=== PATIENT | male | born 1945 | race Caucasian/White ===

== ENCOUNTER → 2016-06-11 | Outpatient (CLI) | payer MEDICARE ==
[~2016-06-11] MED LIST: ATOR20TA42 PO; CYCL-36 PO; FISH1000 PO; GLUCCAP5 PO; LISI-363 PO; LISI-515 PO; MULT-135 PO; PRIN20TA2 PO; VITA100C2 PO; VITA400T2 PO; VITA500T PO
[2016-06-11 07:22] LABS: AUTOMATED NEUTROPHIL # 2.8 TH/MM3 (1.8-7.7); BASOPHIL % 0.6 % (0.0-2.0); EOSINOPHIL # 0.2 TH/MM3 (0-0.4); HEMATOCRIT 44.1 % (39.0-51.0); HEMO FLAGS DIFF FINAL; LYMPHOCYTE # 1.2 TH/MM3 (1.0-4.8); MEAN CELL VOLUME 95.7 FL (80.0-100.0); MEAN CORPUSCULAR HEMOGLOBIN 33.6 PG (27.0-34.0); MEAN CORPUSCULAR HGB CONC 35.1 % (32.0-36.0); MONO % 14.3 % (0.0-8.0); NEUT % 56.1 % (16.0-70.0); PLATELET COUNT 196 TH/MM3 (150-450); RED BLOOD COUNT 4.61 MIL/MM3 (4.50-5.90)
[2016-06-11 07:47] LABS: ALKALINE PHOSPHATASE 71 U/L (45-117); ALT (GPT) 36 U/L (12-78); ANION GAP 8 MEQ/L (5-15); AST (GOT) 28 U/L (15-37); BICARBONATE 28.3 MEQ/L (21.0-32.0); BLOOD UREA NITROGEN 10 MG/DL (7-18); CHLORIDE 95 MEQ/L (98-107); GLOMERULAR FILTRATION RATE 91 ML/MIN (>89); GLUCOSE,FASTING 95 MG/DL (74-99); HDL CHOLESTEROL 63.6 MG/DL (40.0-60.0); LDL CHOLESTEROL 136 MG/DL (0-99); POTASSIUM 4.2 MEQ/L (3.5-5.1); SODIUM (NA) 131 MEQ/L (136-145); TOTAL BILIRUBIN ADULT 0.6 MG/DL (0.2-1.0)
== END ==
LOC: CLAB 06:44
PROVIDERS: ATTEND Family Medicine
DX: I10 Essential (primary) hypertension (principal); E78.2 Mixed hyperlipidemia; M15.0 Primary generalized (osteo)arthritis; Z85.46 Personal history of malignant neoplasm of prostate; Z68.30 Body mass index [BMI] 30.0-30.9, adult
CPT/HCPCS: 36415; 80053; 80061; 85025

== ENCOUNTER 2016-08-04 10:18 | Emergency (ER) | payer OTHER, MEDICARE ==
[~2016-08-04] VITALS: Ht 170.2 cm; Wt 85.0 kg
[~2016-08-04 10:18] MED LIST changes: -FISH1000 PO; -GLUCCAP5 PO; -LISI-515 PO; -MULT-135 PO; -VITA100C2 PO; -VITA400T2 PO; -VITA500T PO
[2016-08-04 10:19] VITALS: BP 170/86; PULSE 105; RESP 15; TEMP 98.2; O2SAT 98
[2016-08-04] MEDS ORDERED: VITA100C2 PO (11:26)
[2016-08-04] MEDS ORDERED: LISI-515 PO (11:26)
[2016-08-04] MEDS ORDERED: VITA400T2 PO (11:26)
[2016-08-04] MEDS ORDERED: MULT-135 PO (11:26)
[2016-08-04] MEDS ORDERED: VITA500T PO (11:26)
[2016-08-04] MEDS ORDERED: GLUCCAP5 PO (11:29)
[2016-08-04] MEDS ORDERED: FISH1000 PO (11:29)
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
[2016-08-04 12:03] VITALS: BP 158/77; PULSE 74; RESP 16; O2SAT 98
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
== END 2016-08-04 12:36 | disposition home or self-care (01) ==
LOC: NEPD 10:18
DX: S09.90XA Unspecified injury of head, initial encounter (principal); R51 Headache; R11.0 Nausea; I10 Essential (primary) hypertension; V49.9XXA Car occupant (driver) (passenger) injured in unspecified traffic accident, initial encounter; Y93.9 Activity, unspecified; Y92.9 Unspecified place or not applicable; Y99.8 Other external cause status
CPT/HCPCS: 70450; 99284

== ENCOUNTER → 2016-09-17 | Outpatient (CLI) | payer MEDICARE ==
[~2016-09-17] MED LIST changes: -ATOR20TA42 PO; -CYCL-36 PO; +FISH1000 PO; +GLUCCAP5 PO; -LISI-363 PO; +LISI-515 PO; +MULT-135 PO; -PRIN20TA2 PO; +VITA100C2 PO; +VITA400T2 PO; +VITA500T PO
[2016-09-17 08:34] LABS: HDL CHOLESTEROL 61.8 MG/DL (40.0-60.0)
[2016-09-17 08:38] LABS: BICARBONATE 31.7 MEQ/L (21.0-32.0); POTASSIUM 4.4 MEQ/L (3.5-5.1)
== END ==
LOC: CLAB 07:43
PROVIDERS: ATTEND Family Medicine
DX: E78.2 Mixed hyperlipidemia (principal); E78.1 Pure hyperglyceridemia
CPT/HCPCS: 36415; 80048; 80061

== ENCOUNTER → 2017-06-24 | Outpatient (CLI) | payer MEDICARE ==
[2017-06-24 07:41] LABS: AUTOMATED NEUTROPHIL # 2.9 TH/MM3 (1.8-7.7); BASOPHIL % 0.4 % (0.0-2.0); EOSINOPHIL # 0.2 TH/MM3 (0-0.4); EOSINOPHIL % 3.6 % (0.0-4.0); HEMATOCRIT 46.9 % (39.0-51.0); HEMOGLOBIN 15.8 GM/DL (13.0-17.0); LYMPH % 25.8 % (9.0-44.0); LYMPHOCYTE # 1.3 TH/MM3 (1.0-4.8); MEAN CELL VOLUME 98.8 FL (80.0-100.0); MEAN CORPUSCULAR HEMOGLOBIN 33.3 PG (27.0-34.0); MEAN CORPUSCULAR HGB CONC 33.7 % (32.0-36.0); MEAN PLATELET VOLUME 8.3 FL (7.0-11.0); MONO % 15.6 % (0.0-8.0); MONOCYTE # 0.8 TH/MM3 (0-0.9); NEUT % 54.6 % (16.0-70.0); PLATELET COUNT 199 TH/MM3 (150-450); RED BLOOD COUNT 4.74 MIL/MM3 (4.50-5.90); RED CELL DISTRIBUTION WIDTH 13.2 % (11.6-17.2); WHITE BLOOD COUNT 5.2 TH/MM3 (4.0-11.0)
[2017-06-24 08:17] LABS: ALT (GPT) 41 U/L (12-78); CHOLESTEROL 245 MG/DL (120-200); TRIGLYCERIDES 68 MG/DL (42-150)
[2017-06-24 08:18] LABS: ALKALINE PHOSPHATASE 74 U/L (45-117); LDL CHOLESTEROL 159 MG/DL (0-99); TOTAL BILIRUBIN ADULT 0.7 MG/DL (0.2-1.0); TOTAL PROTEIN 7.9 GM/DL (6.4-8.2)
[2017-06-24 08:55] LABS: ALBUMIN 4.2 GM/DL (3.4-5.0); AST (GOT) 37 U/L (15-37); BICARBONATE 29.5 MEQ/L (21.0-32.0); BLOOD UREA NITROGEN 6 MG/DL (7-18); CALCIUM 8.9 MG/DL (8.5-10.1); CHLORIDE 97 MEQ/L (98-107); GLOMERULAR FILTRATION RATE 95 ML/MIN (>89); GLUCOSE,FASTING 98 MG/DL (74-99); SODIUM (NA) 133 MEQ/L (136-145)
== END ==
LOC: CLAB 06:49
PROVIDERS: ATTEND Family Medicine
DX: I10 Essential (primary) hypertension (principal); E78.2 Mixed hyperlipidemia; M15.0 Primary generalized (osteo)arthritis
CPT/HCPCS: 36415; 80053; 80061; 85025